=== PATIENT | female | born 1930 | race Caucasian/White ===

== ENCOUNTER 2019-11-01 09:54 | Outpatient (CLI) | payer MEDICARE ==
--- NOTE | 2019-11-01 12:30 | RAD ---
TWO VIEWS OF THE CHEST: COMPARISON: None. HISTORY: Dyspnea. FINDINGS: Two views of the chest show an enlarged cardiomediastinal silhouette. There is no evidence of consol idation, mass, or pleural effusion. Degenerative changes are seen in the spine. IMPRESSION: No evidence of acute cardiopulmonary disease. POS: EAA
== END 2019-11-01 09:55 | disposition home or self-care (01) ==
LOC: RAD 09:54
PROVIDERS: ATTEND Internal Medicine Critical Care Medicine
DX: R06.00 Dyspnea, unspecified (principal)
CPT/HCPCS: 71046

== ENCOUNTER 2020-07-20 12:22 | Inpatient (IN) | payer MEDICARE ==
--- NOTE | 2020-07-20 13:04 | CT ---
CT BRAIN WITH AND WITHOUT CONTRAST: DATE: 07/20/2020 HISTORY: 89-year-old female status post acute head trauma from fall TECHNIQUE: Precontrast scan of the brain. IV injection of iodinated contrast media. Postcontrast scan of brain. FINDINGS: There is no evidence of acute intra-axial or extra-axial hemorrhage. There is no midline shift or any other mass effect. There is no extra-axial fluid collection. There is no evidence of obstructive hydrocephalus. There is no abnormal enhancement or mass. Calvarium is intact. There is diffuse brain parenchymal volume loss. There are low attenuation areas in the white matter. These are nonspecific, but in a patient of this age, they are probably chronic ischemic white matter changes du e to microvascular atherosclerosis. Small lacunar infarction at upper aspect of right basal ganglia, age indeterminate. Acute left parietal superficial soft tissue hematoma.. IMPRESSION: 1) No acute intracranial findings. 2) acute, traumatic left parietal scalp hematoma. 3) small lacunar infarction in right basal ganglia of indeterminate age. 4) involutional changes and chronic ischemic white matter changes.
--- NOTE | 2020-07-20 13:06 | CT ---
CT CERVICAL SPINE NONCONTRAST: DATE: 07/20/2020 HISTORY: cervical trauma: 89-year-old female status post fall FINDINGS: There are no jumped or perched facets. There is no evidence of acute fracture. The vertebral body hei ghts are maintained. There is no prevertebral soft tissue swelling. There are degenerative disc changes and facet osteoarthrosis. IMPRESSION: 1) Cervical spondylosis. 2) no evidence of acute fracture or acute traumatic subluxation.
--- NOTE | 2020-07-20 13:12 | RAD ---
RADIOGRAPH CHEST 1 VIEW: DATE: 07/20/2020 HISTORY: 81-year-old female status post acute chest trauma from fall FINDINGS: The thoracic aorta is tortuous and ectatic. There is no evidence of airspace density, pulmonary edema , or pneumothorax. The lateral costophrenic angles are not effaced. Severe DJD at left glenohumeral joint. IMPRESSION: 1) No acute pulmonary findings. 2) ectasia of thoracic aorta. 3) severe osteoarthrosis of the glenohumeral joint of the left shoulder.
[2020-07-20] MEDS ORDERED: Boostrix 0.5 ML (Tdap) VIAL ONE (14:22)
[2020-07-20 14:34] LABS: #Eosinphils 0.3 thou/uL (0.0-0.7); #Lymphocytes 1.7 thou/uL (1.20-3.40); #Monocytes 0.6 thou/uL (0.11-0.59); #Neutrophils 4.6 thou/uL (1.40-6.50); %Basophils 0.7 % (0.0-1.0); %Eosinophils 3.7 % (0.0-10.0); %Lymphocytes 23.8 % (21.0-51.0); %Neutrophils 63.8 % (42.0-75.0); Hemoglobin 14.2 g/dL (12.0-16.0); Mean Corpuscular HGB CONC 31.4 g/dL (32.0-36.0); Mean Corpuscular Hemoglobin 30.3 pg (27.0-31.0); Mean Corpuscular Volume 96.5 fL (78.0-98.0); Mean Platelet Volume 10.1 fL (7.4-10.4); Platelet Count 186 thou/uL (130-400); RBC Distribution Width 12.6 % (11.5-14.5); Red Blood Cell (RBC) Count 4.69 mill/uL (4.20-5.40); White Blood Cell (WBC) Count 7.2 thou/uL (4.8-10.8)
[2020-07-20 14:50] LABS: ALT (SGPT) 15 U/L (8-55); AST (SGOT) 21 U/L (5-34); Albumin 4.1 g/dL (3.4-4.8); Alkaline Phosphatase 101 U/L (40-110); Anion Gap 15 mmol/L (10-20); BUN (Urea Nitrogen) 24 mg/dL (9.8-20.1); Bilirubin, Total 0.6 mg/dL (0.2-1.2); Calc. Creatinine Clearance 0 mL/min (70-130); Calcium 10.2 mg/dL (7.8-10.44); Carbon Dioxide 26 mmol/L (23-31); Chloride 103 mmol/L (98-107); Glucose 109 mg/dL (83-110); Potassium 3.8 mmol/L (3.5-5.1); Protein, Total 7.1 g/dL (5.8-8.1); Sodium 140 mmol/L (136-145)
[2020-07-20 15:12] LABS: CKMB 1.9 ng/mL (0-6.6)
--- NOTE | 2020-07-20 15:45 | ULT ---
Left lower extremity venous Doppler ultrasound: 07/20/2020 COMPARISON: None HISTORY: left lower extremity edema, assess for DVT TECHNIQUE: Multiplanar grayscale sonographic imaging of the venous structures of the left lower extre mity obtained with color flow and spectral analysis FINDINGS: Left common femoral vein, greater saphenous vein, profunda femoral vein, femoral vein, popl iteal vein, and posterior tibial vein are patent. Normal blood flow, augmentation, and compression within the deep venous system on the left. No evidence for deep venous thrombosis. IMPRESSION: No evidence for deep venous thrombosis of the left lower extremity.
[2020-07-20] MEDS ORDERED: Diltiazem HCl 125 MG, Admixture Fee 1 EACH in Sodium Chloride 0.9% 100 ML IVPB SCH (16:00)
[2020-07-20] MEDS ORDERED: Acetaminophen 650 MG Suppository PR PRN (18:32)
[2020-07-20] MEDS ORDERED: Acetaminophen 325 MG TAB PO PRN (18:32)
[2020-07-20 18:35] LABS: Troponin I 0.017 ng/mL (< 0.028)
[2020-07-20] MEDS ORDERED: Diltiazem 125 MG in Sodium Chloride 0.9% 100 ML IVPB SCH (18:45)
--- NOTE | 2020-07-20 20:25 | PDOC.HHP ---
Hospitalist HPI History of Present Illness: ADMISSION DATE: 07/20/2020 TIME OF ASSESSMENT: 1730 PRIMARY CARE PHYSICIAN: Dr. Cam CHIEF COMPLAINT: Palpitations and a fall HPI: This is an 89-year-old woman who presents to the emergency department with palpitations and has sustained a fall. She is not quite sure which one of these preceded the other. She states she was standing by the table when she lost her footing and fell backwards hitting the back of her head on the floor. She did start bleeding and denies loss of consciousness. She laid there and push the alarm her on her neck was then transferred to a stretcher when EMS arrived. Reports noting palpitations that have continued to persist while in the e mergency department. Denies experiencing any lightheadedness, dizziness, chest pain, or difficulty breathing prior to falling or since the fall. According to the patient she has had longstanding issues with her balance associated with the previous left knee replacement and chronic issues with her instep that required her to wear a brace on her left foot. Of note she has a history of A. fib and at home takes Cardizem 60 mg p.o. 4 times daily as well as amiodarone 200 mg once daily. She states her primary care doctor manages these medications and she does not follow with a rehabilitation supervisor regularly. She is on chronic anticoagulation with Xarelto. States she has been compliant with medications. ROS: Denies any recent fevers, chills or sweats. Has not had any recent cough and denies any hemoptysis. According to her daughter she was recently treated for urinary tract infection. At the moment she does complain of suprapubic discomfort and feeling as if her bladder is full. She has a pure wick catheter in place and states she has been trying to empty her bladder and is not sure if it is simply because she feels an easy using the periodic versus going to the bathroom. States she was able to give a urine sample earlier on arrival to the ED but her daughter states was a very small amount. Patient denies any dysuria or hematuria. Denies any recent changes with her stools such as diarrhea or constipation. No black-colored stools or bright red blood per rectum. Her appetite has been good. All other review of systems are negative. ED COURSE: On arrival to the emergency department she was noted to be in rate controlled A. fib with a heart rate of 90 and a blood pressure of 142/79. She was AO x4. An EKG was done showing A. fib RVR with a heart of 110. No ST changes present. CT of the brain and cervical spine were done showing no acute intracranial findings. She was noted to have atraumatic left parietal scalp hematoma. There was a small lacunar infarction in the right basal ganglia of indeterminate age. Involutional changes and chronic ischemic white matter changes present. The cervical spine was notable for cervical spondylosis but no evidence of acute fracture or acute traumatic subluxation. A chest x-ray was done demonstrating no acute cardiopulmonary findings. There was ectasia of the thoracic aorta. Severe osteoarthritis of the glenohumeral joint of the left shoulder. Venous doppler was done to left lower leg due to swelling (per patient this is chronic since her knee replacement) and there was no evidence of DVT. She was initially given 20 mg of diltiazem IV. Then given 60 mg of diltiazem p.o. She received a tetanus booster while in the emergency department. Allergies/Adverse Reactions: Allergy/AdvReac Type Severity Reaction Status Date / Time No Known Allergies Allergy Unverified 07/20/20 15:53 Past History: PAST MEDICAL HISTORY: 1. Hyperlipidemia 2. Chronic A. fib on anticoagulation with Xarelto 3. Hypertension 4. History of subarachnoid hemorrhage in 1994, no residual deficits 5. Osteoarthritis 6. Psoriasis 7. Macular degeneration with frequent aflibercept injections PAST SURGICAL HISTORY: 1. Left total knee replacement 2. Total hysterectomy 3. Cataract surgery with lens implant SOCIAL HISTORY: Patient denies any history of tobacco use, alcohol consumption or drug use. FAMILY HISTORY: Noncontributory. Hospitalist Exam Vitals: VS: Temp 97.5, HR 113, BP 130/70, RR 19, O2 sat 96% on room air. General Appearance: NAD Eye: PERRL, anicteric sclera Eye - other findings: chronic dry eyes since cataract surgery ENT - other findings: dry bloody matted hair to left posterior scalp, no active bleeding Neck: supple, no lymphadenopathy Heart: normal peripheral pulses, irregular (tachycardic, HR fluctuating 110s to 140s during assessment) Respiratory: CTAB, no wheezes, no rales, no ronchi, normal chest expansion Gastrointestinal: soft, non-distended, normal bowel sounds Gastrointestinal - other findings: mild suprapubic discomfort on palpation, feels like she needs to urinate Extremities - other findings: left leg swelling, chronic Skin: normal turgor, no lesions, no rashes Hospitalist Results Result Diagrams: 07/20/20 14:15 07/20/20 14:15 Lab results: Laboratory Last Values WBC 7.2 thou/uL (4.8-10.8) 07/20/20 14:15 RBC 4.69 mill/uL (4.20-5.40) 07/20/20 14:15 Hgb 14.2 g/dL (12.0-16.0) 07/20/20 14:15 Hct 45.2 % (36.0-47.0) 07/20/20 14:15 MCV 96.5 fL (78.0-98.0) 07/20/20 14:15 MCH 30.3 pg (27.0-31.0) 07/20/20 14:15 MCHC 31.4 g/dL (32.0-36.0) L 07/20/20 14:15 RDW 12.6 % (11.5-14.5) 07/20/20 14:15 Plt Count 186 thou/uL (130-400) 07/20/20 14:15 MPV 10.1 fL (7.4-10.4) 07/20/20 14:15 Neutrophils % 63.8 % (42.0-75.0) 07/20/20 14:15 Lymphocytes % 23.8 % (21.0-51.0) 07/20/20 14:15 Monocytes % 8.0 % (0.0-10.0) 07/20/20 14:15 Eosinophils % 3.7 % (0.0-10.0) 07/20/20 14:15 Basophils % 0.7 % (0.0-1.0) 07/20/20 14:15 Neutrophils # 4.6 thou/uL (1.40-6.50) 07/20/20 14:15 Lymphocytes # 1.7 thou/uL (1.20-3.40) 07/20/20 14:15 Monocytes # 0.6 thou/uL (0.11-0.59) H 07/20/20 14:15 Eosinophils # 0.3 thou/uL (0.0-0.7) 07/20/20 14:15 Basophils # 0.0 thou/uL (0.0-0.2) 07/20/20 14:15 Sodium 140 mmol/L (136-145) 07/20/20 14:15 Potassium 3.8 mmol/L (3.5-5.1) 07/20/20 14:15 Chloride 103 mmol/L (98-107) 07/20/20 14:15 Carbon Dioxide 26 mmol/L (23-31) 07/20/20 14:15 Anion Gap 15 mmol/L (10-20) 07/20/20 14:15 BUN 24 mg/dL (9.8-20.1) H 07/20/20 14:15 Creatinine 1.08 mg/dL (0.6-1.1) 07/20/20 14:15 Estimated GFR (MDRD) 48 07/20/20 14:15 Glucose 109 mg/dL (83-110) 07/20/20 14:15 Calcium 10.2 mg/dL (7.8-10.44) 07/20/20 14:15 Total Bilirubin 0.6 mg/dL (0.2-1.2) 07/20/20 14:15 AST 21 U/L (5-34) 07/20/20 14:15 ALT 15 U/L (8-55) 07/20/20 14:15 Alkaline Phosphatase 101 U/L (40-110) 07/20/20 14:15 CK-MB (CK-2) 1.9 ng/mL (0-6.6) 07/20/20 14:15 Troponin I 0.017 ng/mL (< 0.028) 07/20/20 18:01 B-Natriuretic Peptide 231.0 pg/mL (0-100) H 07/20/20 14:15 Serum Total Protein 7.1 g/dL (5.8-8.1) 07/20/20 14:15 Albumin 4.1 g/dL (3.4-4.8) 07/20/20 14:15 Globulin 3.0 g/dL (2.4-3.5) 07/20/20 14:15 Albumin/Globulin Ratio 1.4 g/dL (1.2-2.2) 07/20/20 14:15 Hospitalist H&P A/P (1) Atrial fibrillation with RVR Code(s): I48.91 - UNSPECIFIED ATRIAL FIBRILLATION Status: Acute (2) Head injury, acute Code(s): S09.90XA - UNSPECIFIED INJURY OF HEAD, INITIAL ENCOUNTER Status: Acute (3) Fall Code(s): W19.XXXA - UNSPECIFIED FALL, INITIAL ENCOUNTER Status: Acute (4) Chronic a-fib Code(s): I48.20 - CHRONIC ATRIAL FIBRILLATION, UNSPECIFIED Status: Chronic (5) Chronic anticoagulation Code(s): Z79.01 - FUR TANNER (CURRENT) USE OF ANTICOAGULANTS Status: Chronic (6) Hypertension Code(s): I10 - ESSENTIAL (PRIMARY) HYPERTENSION Status: Chronic (7) Hyperlipidemia Code(s): E78.5 - HYPERLIPIDEMIA, UNSPECIFIED Status: Chronic Plan: Cardiac monitoring and trend troponins Mg+ ordered Heart rate labile at present, and patient in some distress due to possible urine retention MOTOR COACH TOUR OPERATOR will assist with getting to bedside commode, if unable to urinate we will place a paniagua catheter and assess if HR improves UA/UCx ordered If AFIB RVR persists, will start cardizem drip at 5 mg/hr, as per discussion with Dr. Dunn Monitor BP, hold antihypertensives for now Cardiology has been consulted Keep NPO after midnight Will hold Xarelto and continue neuro checks Q4H in light of head injury Echo ordered Orthostatic BPs and Carotid US DVT Prophylaxis: Mechanical SCDs Falls precautions COVID testing pending Case discussed with Dr. Dunn who agrees with plan as above.
[2020-07-20 21:37] LABS: Lactic Acid 1.5 mmol/L (0.5-2.2)
[2020-07-20 21:45] LABS: Troponin I 0.019 ng/mL (< 0.028)
[2020-07-20] MEDS ORDERED: Magnesium 2 GM/50 ML 2 GM in Premix Bag 1 BAG IVPB SCH (23:59)
[2020-07-21 00:07] VITALS: BMI 34.1
[2020-07-21 01:55] LABS: SARS-CoV-2 PCR by NAA Not Detected (NotDetected)
[2020-07-21 02:23] LABS: Bacteria/HPF None Seen HPF (None Seen); Bilirubin Negative (Negative); Blood, Urine Negative (Negative); Clarity Clear (Clear); Glucose, Urine (Dipstick) Normal (Negative); Ketone, Urine Negative (Negative); Leukocyte Negative Leu/uL (Negative); Nitrite Negative (Negative); Protein, Urine (Dipstick) Negative (Neg-Trace); RBC/HPF 0-3 HPF (0-3); Squamous Epithelial 0-3 HPF (0-3); Urobilinogen Normal mg/dL (Less than 2); WBC/HPF 0-3 HPF (0-3); pH, Urine 5.5 (5.0-9.0)
[2020-07-21 02:37] LABS: Urine Culture Reflex No No
[2020-07-21 04:40] LABS: #Eosinphils 0.3 thou/uL (0.0-0.7); #Lymphocytes 1.7 thou/uL (1.20-3.40); #Monocytes 0.9 thou/uL (0.11-0.59); #Neutrophils 4.5 thou/uL (1.40-6.50); %Basophils 0.5 % (0.0-1.0); %Eosinophils 3.7 % (0.0-10.0); %Lymphocytes 23.3 % (21.0-51.0); %Monocytes 11.6 % (0.0-10.0); %Neutrophils 60.9 % (42.0-75.0); Mean Corpuscular HGB CONC 33.4 g/dL (32.0-36.0); Mean Corpuscular Volume 95.7 fL (78.0-98.0); Mean Platelet Volume 9.9 fL (7.4-10.4); Platelet Count 164 thou/uL (130-400); RBC Distribution Width 12.3 % (11.5-14.5); Red Blood Cell (RBC) Count 4.06 mill/uL (4.20-5.40); White Blood Cell (WBC) Count 7.3 thou/uL (4.8-10.8)
[2020-07-21 04:57] LABS: Anion Gap 13 mmol/L (10-20); BUN (Urea Nitrogen) 19 mg/dL (9.8-20.1); Calc. Creatinine Clearance 63 mL/min (70-130); Calcium 9.6 mg/dL (7.8-10.44); Carbon Dioxide 26 mmol/L (23-31); Chloride 106 mmol/L (98-107); Glucose 102 mg/dL (83-110); Potassium 3.7 mmol/L (3.5-5.1); Sodium 141 mmol/L (136-145)
[2020-07-21] MEDS ORDERED: Loratadine 10 MG TAB PO PRN (08:05)
[2020-07-21] MEDS ORDERED: Loperamide HCl 2 MG CAP PO PRN (08:05)
[2020-07-21] MEDS ORDERED: Labetalol HCl 100 MG/20 ML VIAL SLOW IVP PRN (08:05)
[2020-07-21] MEDS ORDERED: Calcium Carbonate 500 MG ChewTAB PO PRN (08:05)
[2020-07-21] MEDS ORDERED: GUAIFENESIN SF SOLN 200 MG/10 ML UDCUP PO PRN (08:05)
[2020-07-21] MEDS ORDERED: Sodium Chloride 0.65% Nasal 44 ML BOT EA NARE PRN (08:05)
[2020-07-21] MEDS ORDERED: Cepastat Lozenges 1 LOZ PO PRN (08:05)
[2020-07-21] MEDS ORDERED: Bisacodyl 5 MG TAB PO PRN (08:05)
[2020-07-21] MEDS ORDERED: Metoclopramide HCl 10 MG/2 ML VIAL IVP PRN (08:05)
[2020-07-21] MEDS ORDERED: Senokot S 8.6-50 MG TAB PO PRN (08:05)
[2020-07-21] MEDS ORDERED: Diltiazem HCl SR 60 mg Capsule PO SCH (09:00)
[2020-07-21] MEDS: Amiodarone 200 MG TAB PO SCH (09:23)
[2020-07-21] MEDS: hydrALAZINE 10 MG TAB PO SCH ×3 (09:23→21:09)
[2020-07-21] MEDS: Rivaroxaban 10 MG TAB PO SCH (09:23)
[2020-07-21] MEDS: Hydrochlorothiazide 25 MG TAB PO SCH (09:24)
--- NOTE | 2020-07-21 09:37 | CON ---
DATE OF CONSULTATION: 07/21/2020 REASON FOR CONSULTATION: Atrial fibrillation. HISTORY OF PRESENT ILLNESS: Ms. Salmon is a very pleasant 89-year-old woman with a previous history of chronic atrial fibrillation, moved from [place] less than one year ago. She has been on amiodarone and Xarelto for atrial fibrillation. She states she was in normal state of health when she fell. She denies a syncopal episode. She states she lost her balance. She had a scalp laceration with significant bleeding. Heart rate has been increased in the one teens. No current episodes of heart fluttering, palpitations, or associated symptoms. PAST MEDICAL HISTORY: Chronic atrial fibrillation, hyperlipidemia, hypertension, osteoarthritis, psoriasis, macular degeneration, knee surgery, hysterectomy, cataract surgery. SOCIAL HISTORY: No current tobacco or alcohol use. FAMILY HISTORY: Negative for CAD. ALLERGIES: NONE. HOME MEDICATIONS: Include 1. Cardizem. 2. Hydralazine. 3. Xarelto. 4. Lovastatin. 5. Losartan. 6. Hydrochlorothiazide. 7. Amiodarone. REVIEW OF SYSTEMS: A 10-point review of systems is reviewed as above, otherwise negative. PHYSICAL EXAMINATION: PHYSICAL EXAMINATION: GENERAL: Patient is a pleasant woman who is in no acute distress. The patient appears their stated age. VITAL SIGNS: Blood pressure 120/72, pulse 112, respirations 20. NEUROLOGIC: The patient is alert and oriented x3 with no focal neurologic deficits. HEENT: Sclerae without icterus. Mouth has moist mucous membranes with normal pallor. NECK: No JVD. Carotid upstroke brisk. No bruits bilaterally. LUNGS: Clear to auscultation with unlabored respirations. BACK: No scoliosis or kyphosis. CARDIAC: Irregularly irregular. ABDOMEN: Soft, nontender, nondistended. No peritoneal signs present. No hepatosplenomegaly. No abnormal striae. EXTREMITIES: 2+ femoral and 2+ dorsalis pedis pulses. No cyanosis, clubbing, or edema. SKIN: No gross abnormalities. PERTINENT LABORATORY DATA: Hemoglobin 13.0, hematocrit 38.9, creatinine 0.88. IMPRESSION: 1. Atrial fibrillation with rapid ventricular response. 2. Scalp laceration. RECOMMENDATIONS: 1. Recommend increasing Cardizem from 60 t.i.d. to q.6 hours. 2. Add digoxin loading. 3. Review echo. 4. Unlikely to benefit from continued amiodarone therapy; patient likely has chronic atrial fibrillation. We will continue to monitor along. Job ID: [id number]
[2020-07-21] MEDS: Diltiazem HCl SR 60 mg Capsule PO SCH ×3 (09:42→21:09)
[2020-07-21] MEDS: Losartan 25 MG TAB PO SCH (09:43)
[2020-07-21] MEDS: Digoxin 0.25 MG TAB PO SCH ×3 (09:44→21:09)
--- NOTE | 2020-07-21 11:03 | PDOC.HOSPP ---
- Subjective Encounter Date: 07/21/20 Encounter Time: 09:20 Subjective: Patient seen and examined. No new complaints. No overnight events - Objective Vital Signs & Weight: Vital Signs (12 hours) Temp Pulse Resp BP BP BP Pulse Ox 07/21/20 09:44 112 H 07/21/20 09:23 112 H 07/21/20 08:04 97.7 F 112 H 12 121/72 96 07/21/20 05:13 137/65 07/21/20 05:08 116/74 07/21/20 05:03 98.3 F 115 H 24 H 114/54 L 96 07/20/20 23:53 108 H 20 151/73 H 98 Weight Admit Weight 198 lb 11.2 oz Weight 198 lb 11.2 oz I&O: 07/20/20 07/21/20 07/22/20 06:59 06:59 06:59 Output Total 1000 Balance -1000 Result Diagrams: 07/21/20 04:22 07/21/20 04:22 Radiology Reviewed by me: Yes EKG Reviewed by me: Yes Hospitalist ROS - Review of Systems Constitutional: reports: weakness. denies: fever, chills, sweats, malaise, other Respiratory: denies: cough, dry, shortness of breath, hemoptysis, SOB with excertion, pleuritic pain, sputum, wheezing, other Cardiovascular: denies: chest pain, palpitations, orthopnea, paroxysmal noc. dyspnea, edema, light headedness, other Gastrointestinal: denies: nausea, vomiting, abdominal pain, diarrhea, constipation, melena, hematochezia, other Genitourinary: denies: dysuria, frequency, incontinence, hematuria, retention, other Musculoskeletal: denies: neck pain, shoulder pain, arm pain, back pain, hand pain, leg pain, foot pain, other Skin: denies: rash, lesions, yesenia, bruising, other - Medication Medications: Active Medications Generic Name Dose Route Start Last Admin Trade Name Freq PRN Reason Stop Dose Admin Amiodarone HCl 200 mg 07/21/20 09:00 07/21/20 09:23 Amiodarone 200 Mg Tab PO 200 mg DAILY ALVIN Administration Digoxin 0.25 mg 07/21/20 09:00 07/21/20 09:44 Digoxin 0.25 Mg Tab PO 07/21/20 21:01 0.25 mg Q6H ALVIN Administration Diltiazem HCl 60 mg 07/21/20 09:00 07/21/20 09:42 Diltiazem Hcl Sr 60 Mg Capsule PO 60 mg Q6H ALVIN Administration Hydralazine HCl 10 mg 07/21/20 09:00 07/21/20 09:23 Hydralazine 10 Mg Tab PO 10 mg TID ALVIN Administration Hydrochlorothiazide 25 mg 07/21/20 09:00 07/21/20 09:24 Hydrochlorothiazide 25 Mg Tab PO 25 mg DAILY ALVIN Administration Losartan Potassium 100 mg 07/21/20 09:00 07/21/20 09:43 Losartan 25 Mg Tab PO 100 mg DAILY ALVIN Administration Rivaroxaban 20 mg 07/21/20 09:00 07/21/20 09:23 Rivaroxaban 10 Mg Tab PO 20 mg DAILY ALVIN Administration Hospitalist Exam Vitals: Vital Signs (12 hours) Temp Pulse Resp BP BP BP Pulse Ox 07/21/20 09:44 112 H 07/21/20 09:23 112 H 07/21/20 08:04 97.7 F 112 H 12 121/72 96 07/21/20 05:13 137/65 07/21/20 05:08 116/74 07/21/20 05:03 98.3 F 115 H 24 H 114/54 L 96 07/20/20 23:53 108 H 20 151/73 H 98 Weight Admit Weight 198 lb 11.2 oz Weight 198 lb 11.2 oz General Appearance: NAD, awake alert Eye: PERRL, anicteric sclera ENT: normocephalic atraumatic, no oropharyngeal lesions Neck: symmetric, no JVD, no thyromegaly Heart: no murmur, no gallops, no rubs, irregular Respiratory: no wheezes, no rales, no ronchi Gastrointestinal: soft, non-tender, non-distended, normal bowel sounds Gastrointestinal - other findings: Obesity noted Extremities: no cyanosis, no clubbing, no edema Skin: normal turgor, no lesions Neurological: no focal deficits Musculoskeletal: normal tone, normal strength Psychiatric: normal affect, normal behavior Hosp A/P (1) Atrial fibrillation with RVR Code(s): I48.91 - UNSPECIFIED ATRIAL FIBRILLATION Status: Acute (2) Fall Code(s): W19.XXXA - UNSPECIFIED FALL, INITIAL ENCOUNTER Status: Acute (3) Head injury, acute Code(s): S09.90XA - UNSPECIFIED INJURY OF HEAD, INITIAL ENCOUNTER Status: Acute (4) Chronic a-fib Code(s): I48.20 - CHRONIC ATRIAL FIBRILLATION, UNSPECIFIED Status: Chronic (5) Chronic anticoagulation Code(s): Z79.01 - COUNTER POCKET SEWER (CURRENT) USE OF ANTICOAGULANTS Status: Chronic (6) Hyperlipidemia Code(s): E78.5 - HYPERLIPIDEMIA, UNSPECIFIED Status: Chronic (7) Hypertension Code(s): I10 - ESSENTIAL (PRIMARY) HYPERTENSION Status: Chronic (8) Obesity (BMI 30-39.9) Code(s): E66.9 - OBESITY, UNSPECIFIED Status: Chronic - Plan old records reviewed/req, PT/OT Cardiology recommendation appreciated, We will continue to monitor, continue Xarelto Start PT OT Echocardiography and carotid Doppler pending We will monitor for another 24 hours, We will change to inpatient status Medication reviewed and continue for symptomatic and supportive care Continue p.o. Cardizem, digoxin loading
--- NOTE | 2020-07-21 13:45 | ULT ---
EXAM: Carotid vascular duplex with color and spectral Doppler imaging: HISTORY: Injury from a fall, CVA COMPARISON: None FINDINGS: Evidence for focal plaque in proximal right and left ICAs. Very limited exam because of body habitus and very tortuous vessels. Right ICA: PSV: Could not be obtained, secondary to technical issues. There did not appear to be occlusive thrombus. EDV: Could not be obtained secondary to technical issues. ICA/CCA ratio: Not available Left ICA: PSV: 120 cm/s EDV: 9 cm/s ICA/CCA ratio: 1.62 Antegrade flow is seen in both vertebral arteries.. IMPRESSION: Inadequate visualization of proximal right ICA in regards to color flow and Doppler evaluation, presu mably technical. Recommend follow-up CT angiogram of the neck for further assessment because of this. Evidence for carotid artery atherosclerotic vascular disease.
[2020-07-21] MEDS ORDERED: Bacitracin 1 PK TOP PRN (16:01)
[2020-07-21] MEDS ORDERED: Benzonatate 100 MG CAP PO PRN (17:59)
[2020-07-21] MEDS: Atorvastatin Calcium 10 MG TAB PO SCH (21:09)
[2020-07-22] MEDS: Diltiazem HCl SR 60 mg Capsule PO SCH (04:28)
[2020-07-22] MEDS: Diltiazem HCl CD 300 mg Capsule PO SCH (08:44)
[2020-07-22] MEDS: Losartan 25 MG TAB PO SCH (08:45)
[2020-07-22] MEDS: Hydrochlorothiazide 25 MG TAB PO SCH (08:45)
[2020-07-22] MEDS: hydrALAZINE 10 MG TAB PO SCH ×3 (08:45→20:25)
[2020-07-22] MEDS: Amiodarone 200 MG TAB PO SCH (08:45)
[2020-07-22] MEDS: Digoxin 0.125 MG TAB PO SCH (08:45)
[2020-07-22] MEDS: Rivaroxaban 10 MG TAB PO SCH (08:45)
--- NOTE | 2020-07-22 16:45 | PRG ---
DATE OF SERVICE: 07/22/2020 SUBJECTIVE: Ms. Salmon's heart rate has improved. It is unknown whether she has a chronic atrial fibrillation or paroxysmal. She came in on amiodarone. She is also on Eliquis. OBJECTIVE: VITAL SIGNS: Heart rate 87, blood pressure 132/62, temperature 98.1. LUNGS: Clear to auscultation. HEART: ABDOMEN: Soft, nontender, nondistended. EXTREMITIES: No edema. LABORATORY DATA: Echo with Doppler shows normal LVEF of 50% to 55%. IMPRESSION: 1. Atrial fibrillation. 2. Scalp laceration after recent fall. RECOMMENDATIONS: I have changed her p.o. short-acting Cardizem to long-acting 300 mg one p.o. q.a.m. Heart rate appears stable. Continue Eliquis. May consider stopping amiodarone as an outpatient. May also consider cardioversion as an outpatient, but at this point, she is rate controlled, will be okay from my standpoint to discharge home Job ID: [id number]
--- NOTE | 2020-07-22 17:21 | PDOC.HOSPP ---
- Subjective Subjective: rate controlled, still in afib. no chest pain/palpitation. Her medication was recently adjusted by Dr. Davison this morning including changed calcium channel andreea to Cardizem CD, also added low-dose of digoxin. Heart rate currently controlled, in atrial fib rhythms. - Objective Vital Signs & Weight: Vital Signs (12 hours) Temp Pulse Pulse Pulse Resp BP BP 07/22/20 15:41 98.1 F 87 18 07/22/20 15:17 79 85 116/59 L 135/71 07/22/20 11:34 97.9 F 82 18 07/22/20 10:38 80 82 128/66 123/56 L 07/22/20 08:00 07/22/20 07:20 97.9 F 88 18 BP BP BP Pulse Ox 07/22/20 15:41 132/62 98 07/22/20 15:17 07/22/20 11:34 123/56 L 96 07/22/20 10:38 07/22/20 08:00 151/78 H 136/83 135/76 07/22/20 07:20 146/71 H 97 Weight Admit Weight 198 lb 11.2 oz Weight 195 lb 1.6 oz I&O: 07/21/20 07/22/20 07/23/20 06:59 06:59 06:59 Intake Total 600 Output Total 1000 1300 Balance -1000 -700 Result Diagrams: 07/21/20 04:22 07/21/20 04:22 Radiology Reviewed by me: Yes EKG Reviewed by me: Yes Hospitalist ROS - Medication Medications: Active Medications Generic Name Dose Route Start Last Admin Trade Name Freq PRN Reason Stop Dose Admin Amiodarone HCl 200 mg 07/21/20 09:00 07/22/20 08:45 Amiodarone 200 Mg Tab PO 200 mg DAILY ALVIN Administration Atorvastatin Calcium 10 mg 07/21/20 21:00 07/21/20 21:09 Atorvastatin Calcium 10 Mg Tab PO 10 mg HS ALVIN Administration Bacitracin 1 pk 07/21/20 16:01 07/21/20 17:44 Bacitracin 1 Pk TOP 1 pk DAILYPRN PRN Administration TO WOUND Benzonatate 100 mg 07/21/20 17:59 07/21/20 18:40 Benzonatate 100 Mg Cap PO 100 mg Q4H PRN Administration Cough Digoxin 0.125 mg 07/22/20 09:00 07/22/20 08:45 Digoxin 0.125 Mg Tab PO 0.125 mg DAILY ALVIN Administration Diltiazem HCl 300 mg 07/22/20 09:00 07/22/20 08:44 Diltiazem Hcl Cd 300 Mg Capsule PO 300 mg DAILY ALVIN Administration Hydralazine HCl 10 mg 07/21/20 09:00 07/22/20 15:43 Hydralazine 10 Mg Tab PO 10 mg TID ALVIN Administration Hydrochlorothiazide 25 mg 07/21/20 09:00 07/22/20 08:45 Hydrochlorothiazide 25 Mg Tab PO 25 mg DAILY ALVIN Administration Losartan Potassium 100 mg 07/21/20 09:00 07/22/20 08:45 Losartan 25 Mg Tab PO 100 mg DAILY ALVIN Administration Rivaroxaban 20 mg 07/21/20 09:00 07/22/20 08:45 Rivaroxaban 10 Mg Tab PO 20 mg DAILY ALVIN Administration Hospitalist Exam Vitals: Vital Signs (12 hours) Temp Pulse Pulse Pulse Resp BP BP 07/22/20 15:41 98.1 F 87 18 07/22/20 15:17 79 85 116/59 L 135/71 07/22/20 11:34 97.9 F 82 18 07/22/20 10:38 80 82 128/66 123/56 L 07/22/20 08:00 07/22/20 07:20 97.9 F 88 18 BP BP BP Pulse Ox 07/22/20 15:41 132/62 98 07/22/20 15:17 07/22/20 11:34 123/56 L 96 07/22/20 10:38 07/22/20 08:00 151/78 H 136/83 135/76 07/22/20 07:20 146/71 H 97 Weight Admit Weight 198 lb 11.2 oz Weight 195 lb 1.6 oz General Appearance: NAD Eye: PERRL ENT: normocephalic atraumatic Neck: supple Heart: irregular Respiratory: CTAB Gastrointestinal: soft Extremities: no cyanosis Skin: normal turgor Neurological: cranial nerve grossly intact Musculoskeletal: normal tone Psychiatric: normal affect, normal behavior, A&O x 3 Hosp A/P - Plan still in afib but rate controlled. Asymptomatic otherwise Cardiology changed her medications to Cardizem CD and low dose dig cont Xarelto for stroke ppx. Pt is concerned about going home tonight as her meds recently adjusted, would like to go back to [facility] in AM cont PT Follow Echo - done, results pending
[2020-07-22] MEDS: Atorvastatin Calcium 10 MG TAB PO SCH (20:25)
[2020-07-23 06:32] VITALS: TEMP 98.2
[2020-07-23 07:51] VITALS: BP 150/88
--- NOTE | 2020-07-23 07:54 | PRG ---
DATE OF SERVICE: 07/23/2020 SUBJECTIVE: Ms. Salmon is doing better. Heart rate is much better controlled on 300 mg of Cardizem. I did review her home medication. She states amiodarone has been discontinues recently. She has been in chronic atrial fibrillation. OBJECTIVE: VITAL SIGNS: Blood pressure 122/59, pulse 94, temperature 98.2. LUNGS: Clear to auscultation. HEART: Irregularly irregular. ABDOMEN: Soft, nontender, nondistended. EXTREMITIES: No edema. PERTINENT LABORATORY DATA: Include a hemoglobin of 13, hematocrit 38.9. IMPRESSION: 1. Atrial fibrillation. 2. Recent scalp laceration. RECOMMENDATIONS: 1. Continue anticoagulation therapy. 2. Continue calcium channel andreea at 300 mg per day. 3. Discontinue amiodarone. 4. Okay from my standpoint to discharge home with outpatient followup. Job ID: [id number]
[2020-07-23] MEDS: Hydrochlorothiazide 25 MG TAB PO SCH (08:09)
[2020-07-23] MEDS: Rivaroxaban 10 MG TAB PO SCH (08:09)
[2020-07-23] MEDS: Diltiazem HCl CD 300 mg Capsule PO SCH (08:09)
[2020-07-23] MEDS: Digoxin 0.125 MG TAB PO SCH (08:09)
[2020-07-23] MEDS: hydrALAZINE 10 MG TAB PO SCH (08:10)
[2020-07-23] MEDS: Losartan 25 MG TAB PO SCH (08:10)
--- NOTE | 2020-07-23 08:57 | PDOC.DS.DS ---
Provider Date of Admission: 07/21/20 10:59 Date of Discharge: 07/23/20 Admitting Provider: Gil Dunn MD Consultations: Cardiology Primary Care Physician: Thom Cam MD Course Hospital Course: Patient is a pleasant 89 years old female who has significant past medical histories of dyslipidemia, chronic atrial fib on Xarelto for stroke prophylaxis, hypertension, who presented to ED with complaint of palpitation and status post fall. Initial work-up in the ED, found as he was in atrial flutter with RVR with a heart rate around 100. No ST changes on EKG. CT head and the cervical spine was done no acute intracranial abnormality. No focal weakness. Patient was subsequently admitted to hospitalist service. Cardiology was consulted. Patient was seen by Dr. Davison. He had adjusted her home medication. He had changed his short acting Cardizem to long-acting Cardizem CD 300 mg daily, and added a low-dose digoxin. Her rate is well controlled. She had chronic atrial fib. He recommend to discontinue amiodarone at this time. Patient cleared to discharge from cardiology standpoint, follow-up with Dr. Davison in 1 week and follow-up with PCP. Lab Results: 07/21/20 04:22 07/21/20 04:22 Vitals: Vital Signs (12 hours) Temp Pulse Resp BP BP BP Pulse Ox 07/23/20 07:12 98.2 F 97 18 150/88 H 140/86 141/88 H 92 L 07/23/20 05:00 98.2 F 94 20 122/59 L 93 L 07/23/20 00:00 162/72 H Weight Admit Weight 198 lb 11.2 oz Weight 196 lb 3.2 oz Physical Exam: The patient was seen and examined on the day of discharge. General Appearance: NAD Eye: PERRL ENT: normocephalic atraumatic Neck: supple Respiratory: CTAB Cardiovascular: irregular Gastrointestinal: soft Extremities: no cyanosis Neurological: cranial nerve grossly intact Musculoskeletal: normal tone PSYCH: normal affect, normal behavior, A&O x 3 Problem Time Spent in discharge related activities (mins): 35 Plan Prescriptions: Diltiazem HCl [Cardizem CD] 300 mg PO DAILY #30 cap Digoxin [Lanoxin] 0.125 mg PO DAILY #30 tab Home Medications: Medication Instructions Recorded Confirmed Type Hydrochlorothiazide 20 mg PO DAILY 07/20/20 07/20/20 History Losartan Potassium 100 mg PO DAILY 07/20/20 07/20/20 History Lovastatin 40 mg PO QPM-WM 07/20/20 07/20/20 History Rivaroxaban [Xarelto] 20 mg PO DAILY 07/20/20 07/20/20 History hydrALAZINE [Apresoline] 10 mg PO TID 07/20/20 07/20/20 History Digoxin [Lanoxin] 0.125 mg PO DAILY #30 tab 07/23/20 Rx Diltiazem HCl [Cardizem CD] 300 mg PO DAILY #30 cap 07/23/20 Rx Allergies: No Known Allergies Allergy (Verified 07/20/20 23:07) Discharge Instructions:: Please follow up with cardiology in 1 week Nourishment:: Heart Healthy Diet Referrals: Thom Cam MD [Primary Care Provider] - 7 Days (Please follow up with your primary care provider in 7days. call the office to schedule an appointment.) Efrem Davison MD [Active] - 7 Days (Please follow up with Dr Davison in 1 week. call the office to schedule an appointment.) Disposition: HOME Quality CORE MEASURES:: N/A
--- NOTE | 2020-07-25 16:25 | EKG ---
Test Reason : Blood Pressure : / mmHG Vent. Rate : 110 BPM Atrial Rate : 117 BPM P-R Int : 000 ms QRS Dur : 098 ms QT Int : 354 ms P-R-T Axes : 000 -11 020 degrees QTc Int : 479 ms Atrial fibrillation with rapid ventricular response Nonspecific T wave abnormality Abnormal ECG Confirmed by JEWEL BEARDEN, [facility] ([id number]), editor managing director STEVE BADILLO ([id number]) on 07/25/2020 4:24:59 PM Referred By: Confirmed By:UMM HOLLOWAY MD
== END 2020-07-23 11:35 | disposition home or self-care (01) | DRG 310 ==
LOC: ERS 12:22 → ERHOLD 16:28 → 2NO 20:39 → OBSVTOIN 07-21 10:59
PROVIDERS: ADMIT Internal Medicine; ATTEND Family Medicine
DX: I48.20 Chronic atrial fibrillation, unspecified (principal); I48.92 Unspecified atrial flutter; Z20.822 Contact with and (suspected) exposure to COVID-19; Z23 Encounter for immunization; E78.5 Hyperlipidemia, unspecified; I10 Essential (primary) hypertension; M19.90 Unspecified osteoarthritis, unspecified site; L40.9 Psoriasis, unspecified; H35.30 Unspecified macular degeneration; Z96.652 Presence of left artificial knee joint; S01.01XA Laceration without foreign body of scalp, initial encounter; W19.XXXA Unspecified fall, initial encounter; Z79.01 Long term (current) use of anticoagulants; Z86.73 Personal history of transient ischemic attack (TIA), and cerebral infarction without residual deficits; Z90.710 Acquired absence of both cervix and uterus; Z98.49 Cataract extraction status, unspecified eye; Z79.899 Other long term (current) drug therapy
CPT/HCPCS: 36415; 51701; 70450; 71045; 72125; 80048; 80053; 81001; 82553; 83605; 83735; 83880; 84443; 84484; 85025; 87635; 90471; 90715; 93005; 93306; 93880; 94760; 96374; G0378; J3475; J3490; U0003; U0005